=== PATIENT | male | born 1985 | race Caucasian/White ===

== ENCOUNTER 2025-01-07 05:13 | Emergency (ER) | payer SELFPAY ==
[~2025-01-07] VITALS: Ht 188 cm; Wt 95.5 kg
[2025-01-07 05:18] VITALS: TEMP 98.7
--- NOTE | 2025-01-07 06:04 | RADIOLOGY REPORT ---
EXAM: DI FOOT, COMPLETE (3VW MIN) HISTORY: FT.FOOT PAIN COMPARISON: None TECHNIQUE: DI FOOT, COMPLETE (3VW MIN) FINDINGS: BONES: No acute fracture or dislocation is seen. Joint spaces are maintained. SOFT TISSUES: The overlying soft tissues are within normal limits. IMPRESSION: 1. No acute osseous abnormality of the left foot.
[2025-01-07] MEDS ORDERED: SULF1TAB49 PO (06:20)
[2025-01-07 06:21] VITALS: BP 147/87; PULSE 72; O2SAT 98
[2025-01-07] MEDS ORDERED: NAPR-56 PO (06:21)
--- NOTE | 2025-01-07 06:21 | Physician Documentation ---
History of Present Illness ~ Chief Complaint: Foot pain Stated Complaint: METAL STUCK ON FOOT Time Seen by MD: 05:58 HPI This gentleman 39 years of age comes in for evaluation of left foot pain in the lateral aspect. He believes he stepped on a metal shard two weeks ago. The pain is worse with ambulation. The particular palliating factors. Did not attempt to treat it. Not clear why he waited two weeks to come in. Denies any fever or chills. Denies any concerns for drugs, alcohol or illicit substances use Tetanus witin 5 years: No Medication Reconciliation Allergies: Coded Allergies: No Known Allergies (Unverified , 01/07/25) Review of Systems ROS 10 point review of systems was performed and unless noted above in HPI is negative for acute process/complaint. Physical Exam Vital Signs: Temperature: 98.7, Heart Rate: 100, Respiratory Rate: 16, BP: 161/93, Pulse Oximetry: 97, Weight: 95.450 Oxygen Flow Rate: 0 Physical Exam Physical examination: GENERAL: Awake, alert, oriented, GCS 15, no apparent distress, non-toxic appearing, answers questions, follows commands appropriately. HEENT: Atraumatic, normocephalic, pupils equal, extraocular muscles intact Active gross movements, sclerae anicteric, mucus membranes moist, no stridor. NECK: Midline, no JVD CARDIOVASCULAR: Good skin perfusion without evidence of pallor, mottling. PULMONARY: Nonlabored, symmetric chest rise, no audible wheezing, no accessory muscle use, no respiratory distress, speaking in full sentences. GASTROINTESTINAL: Not distended. NEUROLOGIC: Lucid with normal mental status. Normal facial symmetry. Moves all extremities symmetrically and with purpose. No truncal ataxia. Speech is fluid without evidence of dysarthria or aphasia, no focal deficits appreciated. EXTREMITIES: Acute deformities Skin: warm, dry PSYCHIATRIC: Normal affect, normal insight, normal concentration. Focused exam: [Left foot on the lateral aspect there is a callus with some surrounding erythema and calor tender area to palpation. No obvious f luctuance.] Progress Results/Orders Results/Orders Vital Signs 01/07/25 05:18 Temp 98.7 Pulse 100 Resp 16 B/P (MAP) 161/93 Pulse Ox 97 O2 Flow Rate 0 Medical Decision Making Findings Facility Status: ED Holds, [facility] process The plan was discussed with the patient, who demonstrates clear understanding of the plan and is in agreement with the plan unless otherwise noted in the chart. All questions have been answered, all concerns were addressed unless otherwise documented. I was available throughout their ED stay for frequent reassessment and questions. Differential Diagnoses (considered and possible or likely): [Cellulitis, abscess, osteomyelitis, foreign object including mental foreign object] ??Differential Diagnoses (considered and unlikely, not requiring evaluation currently): [No evidence of neurovascular injury] MDM Data Please see [facility] for the following: Independent Historians and external Records Review. Historian: [Patient] Independent Historians: ?[None] Medication Management: [Reviewed medication list] Social History and determinants: [Reviewed] Please see the body of the note for the following: Any independent interpretatio ns of ECG, imaging studies. All vitals signs/haemodynamics, ordered tests were independently reviewed and interpreted by myself. Nursing triage complaint and vitals reviewed, additional nursing notes were reviewed as available and I agree unless otherwise noted or documented in contradiction in the chart Vital Signs: Independently reviewed Labs: Independently interpreted Imaging: Independently interpreted Old Medical Records: Independently reviewed, see [facility] for relevant summary and information Pulse Oximetry: [100%] interpreted as [normal on room air] by me Additionally notably showing: [Hemodynamically stable] Tests considered but not ordered include: [Hematologic workup and imaging has been considered but does not appear to be necessary given clinical nature of diagnosis] Social Determinants of Health Impact: Patient was evaluated in [facility] [place] to healthcare due to below par ratio of patient to medical providers. [] Comorbid Conditions Impacting Present Evaluation and Care/Treatment: [] Management Discussions with other Healthcare Providers: [] Treatment and Disposition Medication Management (Given or considered): []. See EMR for details Consideration for Hospitalization/Escalation/Deescalation of Care: Admission for observation has been considered, [however the patient is able to tolerate p.o., their symptoms are controlled, they are able to rely on oral medications, and their chief complaint/diagnosis can be managed on outpatient basis.] ?ED Course:?[There is noticeable cellulitis of the examination, no obvious abscess at this time, no palpable or observable foreign body to extract] ?Shared decision making:?[Patient is hemodynamically stable for discharge home with follow with their primary care provider. [ ] Specific and cautious return precautions provided and discussed with full understanding. Any incidental findings were also discussed and follow up recommendations given. [] All questions answered. Patient/family were able to verbalize back return precautions. Patient/family agree to plan. Copies of imaging and laboratory studies were provided.] Code status:?FULL Please see the full Electronic Medical Record for full details of nursing documentation, medications list, other records of complete past medical history and conditions, vital signs, laboratory studies, and any radiologic study interpretations by radiologists. Portions of this note were completed using Bottle dictation software and as a result there may exist minor errors in spelling. I have reviewed elements of past family and social history and agree as included in note. Departure Disposition: HOME / SELF CARE / HOMELESS Impression: Primary Impression: Cellulitis of foot without toes, left Condition: Stable Discharge Instructions: Cellulitis, Adult Referrals: NO PRIMARY CARE PROVIDER (PCP) Prescriptions Naproxen (Naproxen) 500 Mg Tablet 1 TAB PO Q12H, #20 TAB Prov: MAXIM SANCHES DO 01/07/25 Sulfamethoxazole/Trimethoprim (Bactrim Ds Tablet) 800 Mg-160 Mg Tablet 1 TAB PO Q12H for 10 Days, #20 TAB Prov: MAXIM SANCHES DO 01/07/25 Education Educated: Patient Educated regarding: diagnosis, treatment, prognosis, need for follow up Signature Scribe Signature: No scribe Attestation: This note accurately reflects clinical decisions, work performed by myself, DO MYRON Wheeler NICHOLAS M DO Jan 07, 2025 06:21
[2025-01-07 06:25] VITALS: RESP 18
== END 2025-01-07 06:40 | disposition home or self-care (01) ==
LOC: ER 05:15
DX: L03.116 Cellulitis of left lower limb (principal)
CPT/HCPCS: 73630; 99283

== ENCOUNTER 2025-01-10 14:41 | Emergency (ER) | payer OTHER ==
[~2025-01-10] VITALS: Ht 188 cm; Wt 89.4 kg
[~2025-01-10 14:41] MED LIST: NAPR-56 PO; SULF1TAB49 PO
[2025-01-10 15:15] LABS: MEAN PLATELET VOLUME 5.8 FL (7.4-10.4); RED CELL DISTRIBUTION WIDTH 13.0 % (11.5-14.5)
[2025-01-10 15:40] LABS: CREATININE 1.28 MG/DL (0.60-1.10); TOTAL CARBON DIOXIDE 24.2 MMOL/L (24-32); eCRCL 91 ML/MIN; eGFR 63 ML/MIN
[2025-01-10 16:20] LABS: LEUKOCYTE ESTERASE ,URINE NEGATIVE (Neg); NITRITES, URINE NEGATIVE (Neg); OCCULT BLOOD,URINE LARGE (Neg)
[2025-01-10 16:26] LABS: UA COLLECTION TYPE URINAL
[2025-01-10 16:34] LABS: SQUAMOUS EPITHELIAL CELL,UR NONE SEEN /LPF (FEW)
--- NOTE | 2025-01-10 16:46 | Physician Documentation ---
History of Present Illness ~ Chief Complaint: ETOH Withdrawl Stated Complaint: ALCOHOL WITHDRAWAL Time Seen by MD: 14:50 Source: patient Mode of Arrival: POV Exam Limitations: no limitations HPI Chief Complaint: Alcohol withdrawal Caveat: None Independent Historians: None History of Present Illness: Patient is a 39-year-old man who comes in complaining of alcohol withdrawal symptoms. These symptoms include tremors, nausea, cold sweats. Patient denies any visual changes or hallucinations. Patient denies any vomiting or diarrhea. Patient denies any abdominal pain. Patient states he last drank seven shots of rum this morning for breakfast. Patient has been drinking heavily for two months on a daily basis. Patient wishes to stop drinking. Patient has been in AA before in [facility]. Review of systems: All systems were reviewed and are negative except for what is indicated in the history of present illness. Past Medical History: Alcoholism Past Surgical History: None Social History: Heavy daily alcohol use for a couple of months, no tobacco use, denies other drug use Medications: Reviewed as documented Nursing Notes Allergies: Reviewed as documented in Nursing Notes Tetanus within 5 years?: No Medication Reconciliation Allergies: Coded Allergies: No Known Allergies (Unverified , 01/10/25) Scheduled Naproxen (Naproxen), 1 TAB PO Q12H Sulfamethoxazole/Trimethoprim (Bactrim Ds Tablet), 1 TAB PO Q12H Review of Systems All Other Systems at this time: Reviewed and Negative ROS Patient denies any other acute symptoms other than above. All other systems are negative Physical Exam Vital Signs: RN Vital Signs have been reviewed: Yes, Temperature: 98.3, Source: Oral, Heart Rate: 82, Respiratory Rate: 11, BP: 139/88, Pulse Oximetry: 100, Weight: 89.400 Pulse Oximetry Reflects: adequate oxygenation Physical Exam General Appearance: No distress HEENT: Normal OP, moist oral mucosa, PERRL, EOMI, no tongue fasciculations Neck: supple, normal ROM, trachea midline Pulmonary: No respiratory distress, CTA, BS equal Cardiac: RRR, no murmur, rub or gallop, GI: nondistended, soft, nontender, normal bowel sounds, no guarding, no rebound Extremities: normal ROM, no swelling, old blister over the left lateral heel with some surrounding erythema that is tender to palpation. No fluctuance. Skin: intact, dry, warm, no rashes, see extremity exam above Neuro: AAOx3, speech is clear, no focal motor weakness, tremors Psych: normal affect, good eye contact, no apparent hallucination, normal speech Progress Results/Orders Results/Orders Completed Orders - AVANI GUZMAN MD Cbc/Diff (01/10/25 14:59) Lipase (01/10/25 14:59) CMP (01/10/25 14:59) Ua W/Microscopic, Cult If Ind (01/10/25 15:50) Vital Signs 01/10/25 01/10/25 01/10/25 14:44 15:52 15:55 Temp 98.3 98.3 Pulse 79 82 Resp 17 11 B/P (MAP) 152/89 139/88 (105) Pulse Ox 96 100 Laboratory Tests Test 01/10/25 15:05 01/10/25 15:50 White Blood Count 6.7 Red Blood Count 4.78 Hemoglobin 15.3 Hematocrit 44.8 Mean Corpuscular Volume 93.5 Mean Corpuscular Hemoglobin 31.9 H Mean Corpuscular Hemoglobin Concent 34.2 Red Cell Distribution Width 13.0 Platelet Count 294 Mean Platelet Volume 5.8 L Neutrophils (%) (Auto) 63.7 Lymphocytes (%) (Auto) 28.4 Monocytes (%) (Auto) 5.5 Eosinophils (%) (Auto) 1.6 Basophils (%) (Auto) 0.8 Neutrophils # (Auto) 4.3 Lymphocytes # (Auto) 1.9 Monocytes # (Auto) 0.4 Eosinophils # (Auto) 0.1 Basophils # (Auto) 0.1 CBC Comment Sodium Level 141 Potassium Level 4.3 Chloride Level 102 Carbon Dioxide Level 24.2 Anion Gap 15 Blood Urea Nitrogen 12 Creatinine 1.28 H Estimated GFR/1.73 m2 63 BUN/Creatinine Ratio 9.4 L Glucose Level 97 Calcium Level 8.5 Total Bilirubin 0.5 Aspartate Amino Transf (AST/SGOT) 108 H Alanine Aminotransferase (ALT/SGPT) 136 H Alkaline Phosphatase 97 Total Protein 8.1 Albumin 4.1 Globulin 4.0 Albumin/Globulin Ratio 1.0 L Lipase 98 H Chemistry Comments Urine Specimen Description Urinal Urine Color Yellow Urine Clarity Slightly cloudy Urine pH 6.0 Urine Specific [place] >=1.030 Urine Protein 30 H Urine Glucose (UA) Negative Urine Ketones Trace H Urine Occult Blood Large H Urine Nitrite Negative Urine Bilirubin Negative Urine Urobilinogen 1.0 Urine Leukocyte Esterase Negative Urine RBC Tntc Urine WBC 0-4 Urine Squamous Epithelial Cells None seen Urine Bacteria Few Urine Culture Indicated Not ind Volume Urine Centrifuged 10 ml Urine Comment Medical Decision Making Findings Differential diagnosis includes but is not limited to: Alcohol withdrawal, alcohol intoxication, alcohol dependence, delirium tremens, electrolyte abnormalities, dehydration Laboratory data independent interpretation: CBC: Unremarkable CMP: Unremarkable Emergency department course/medical decision-making: Patient is a 39-year-old man who complains of alcohol withdrawal symptoms. Patient is afebrile and hemodynamically stable. There was no evidence of delirium. Patient's appears to be clinically sober. Patient will be started on Librium and gabapentin. Patient has an early infected blister to the left lateral heel. Patient will be started on Keflex. Patient is encouraged to go to AA or other alcoholics support group. Patient has one in mind. Patient is stable for discharge. Patient understands that he is to abstain from alcohol taking these medications. Departure Time of Disposition: 16:42 Disposition: 01 HOME / SELF CARE / HOMELESS Impression: Primary Impression: Alcohol withdrawal syndrome Qualified Codes: F10.930 - Alcohol use, unspecified with withdrawal, uncomplicated Condition: Stable Discharge Instructions: Alcohol Withdrawal Syndrome, [id number] Additional Instructions: YOU MUST ABSTAIN FROM ALL ALCOHOL WHEN TAKING THE LIBRIUM THIS COULD CAUSE RESPIRATORY FAILURE AND . FOLLOW UP WITH ALCOHOLICS ANONYMOUS Prescriptions Chlordiazepoxide Hcl (Librium) 25 Mg Capsule 25 MG PO DIRECTED, #20 CAP 0 Refills 25MG PO QID FOR 2 DAY, THEN 25MG PO TID FOR 2 DAY, 25MG BID FOR 2 DAY, THEN 25 PO FOR 2 DAY. Prov: AVANI GUZMAN MD 01/10/25 Cephalexin*Monohydrate* (Keflex*) 500 Mg Capsule 1 CAP PO QID, #28 CAP Prov: AVANI GUZMAN MD 01/10/25 Gabapentin (Gabapentin ER) 300 Mg Tab.er.24h 1 CAPSULE PO HS, #7 CAP Prov: AVANI GUZMAN MD 01/10/25 Education Educated: Patient Educated regarding: diagnosis, treatment, need for follow up Signature Scribe Signature: No scribe Attestation: No scribe AVANI GUZMAN MD Jan 10, 2025 16:46
[2025-01-10] MEDS ORDERED: CHLO25CA10 PO (16:48)
[2025-01-10] MEDS ORDERED: GABA300T28 PO (16:48)
[2025-01-10] MEDS ORDERED: CEPH-585 PO (16:48)
[2025-01-10 17:27] VITALS: BP 130/101; PULSE 87; RESP 17; TEMP 98.3; O2SAT 97
== END 2025-01-10 17:29 | disposition home or self-care (01) ==
LOC: ER 14:42
DX: F10.239 Alcohol dependence with withdrawal, unspecified (principal); Z79.899 Other long term (current) drug therapy; Y90.9 Presence of alcohol in blood, level not specified
CPT/HCPCS: 36415; 80053; 81001; 83690; 85025; 99284

== ENCOUNTER 2025-02-12 19:31 | Emergency (ER) | payer OTHER ==
[~2025-02-12] VITALS: Ht 188 cm; Wt 90.9 kg
[~2025-02-12 19:31] MED LIST changes: +CEPH-585 PO; +CHLO25CA10 PO; +GABA300T28 PO; -NAPR-56 PO; -SULF1TAB49 PO
[2025-02-12 19:33] VITALS: TEMP 98
--- NOTE | 2025-02-12 19:57 | Physician Documentation ---
History of Present Illness ~ Chief Complaint: See Chief Complaint Stated Complaint: INFECTION Time Seen by MD: 19:33 HPI 39-year-old male presents with a complaint of alcohol intoxication. States he has been drinking excessively over the last few days. Also reports hiccups. Not currently hiccuping. Denies any chest pain shortness of breath nausea vomiting Drinking Duration: unknown Tetanus within 5 years?: No Medication Reconciliation Allergies: Coded Allergies: No Known Allergies (Unverified , 01/10/25) Scheduled Cephalexin*Monohydrate* (Keflex*), 1 CAP PO QID Chlordiazepoxide Hcl (Librium), 25 MG PO DIRECTED Gabapentin (Gabapentin ER), 1 CAPSULE PO HS Discontinued Medications Naproxen (Naproxen), 1 TAB PO Q12H Discontinued Reason: Auto Discontinued Review of Systems All Other Systems at this time: Reviewed and Negative ROS As stated above in the HPI, otherwise all systems are reviewed and negative. Physical Exam Vital Signs: Temperature: 98.0, Heart Rate: 97, Respiratory Rate: 14, BP: 149/81, Pulse Oximetry: 97, Weight: 90.910 Oxygen Flow Rate: 0 Physical Exam General: Alert, no apparent distress. Respiratory: Lungs clear, no respiratory distress. Cardiovascular: Regular rate and rhythm, no murmurs. Gastrointestinal: Soft, nontender, nondistended. Bowels sounds present. Neurologic: Oriented x4. Psychiatric: Normal mood and affect. Skin: Normal color, warm and dry. No edema, no ecchymosis. Progress Results/Orders Results/Orders Vital Signs 02/12/25 02/12/25 19:33 20:00 Temp 98.0 Pulse 97 80 Resp 14 16 B/P (MAP) 149/81 140/78 Pulse Ox 97 98 O2 Flow Rate 0 Medical Decision Making Findings Could not obtain an appropriate medical complaint other than that the patient has been drinking excessive amounts of alcohol this evening and that he wants to stop. I advised him that the 1st step is to not been more alcohol and not drinking more alcohol. He verbalized understanding at this time I do not see a ny reason to pursue any further evaluation or treatment. Told him he could come back after he is sober and I could medically clear him Differential Dx:Considerations: Intoxication - ETOH, Intoxication - other drug, Sub. Abuse -continuous, Sub. Abuse-intermittent, Skull fracture, Fracture - other bone, Personality disorder, Closed head injury, Cervical spine injury, Abrasion, Confusion, Hematoma, Laceration, Foreign body, Dehydration, Encephalopathy, Hepatitis, Pancreatitis, Thiamine deficiency, Other Departure Disposition: 01 HOME / SELF CARE / HOMELESS Impression: Primary Impression: Alcohol abuse Condition: Stable Discharge Instructions: Alcohol Intoxication, [id number] Referrals: NO PRIMARY CARE PROVIDER (PCP) Signature Scribe Signature: uy Attestation: Scribed for Russell Carver Measurement Superintendent by Russell Isabel NP . 02/12/25 22:45 RUSSELL CARVER NP Feb 12, 2025 19:57
[2025-02-12 20:00] VITALS: BP 140/78; PULSE 80; RESP 16; O2SAT 98
== END 2025-02-12 20:03 | disposition home or self-care (01) ==
LOC: ER 19:32
DX: F10.129 Alcohol abuse with intoxication, unspecified (principal); Y90.9 Presence of alcohol in blood, level not specified; Z79.899 Other long term (current) drug therapy
CPT/HCPCS: 99282